=== PATIENT | male | born 1975 | race Caucasian/White ===

== ENCOUNTER 2024-03-02 21:51 | Emergency (ER) | payer BC, SELFPAY ==
--- NOTE | ~2024-03-02 | XR_ITS ---
EXAMINATION: XR chest 2V Exam Date/Time: 03/02/2024 22:08 CDT HISTORY: chest pain Comparison: 06/26/2018. RESULT: Lines, tubes, and devices: None. Lungs and pleura: Clear. Cardiomediastinal silhouette: Stable. Other: No acute osseous or upper abdominal finding. IMPRESSION: No acute cardiopulmonary process. Reviewed, dictated and finalized at location [facility].
--- NOTE | 2024-03-02 21:54 | ECG_ITS ---
Test Date: 2024-03-02 22:05:27 Measurements Intervals [place] Rate: 90 P: 29 MD: 222 QRS: -25 QRSD: 112 T: 31 QT: 353 QTc: 434 Interpretive Statements SINUS RHYTHM WITH FIRST DEGREE AV BLOCK MINOR NONSPECIFIC T-WAVE ABNORMALITY ABNORMAL ECG No previous ECG available for comparison Electronically Signed On 03-03-2024 07:25:10 CDT by Lorenzo Julian M.D.
[2024-03-02 22:18] VITALS: BP 148/104; PULSE 90; RESP 15; TEMP 36.8; O2SAT 100
[2024-03-02 22:53] LABS: Basophils Percent Auto 0.4 % (0.2-1.2); Eosinophils Absolute Auto 0.3 K/mm3 (0-0.3); Hematocrit 40.2 % (42.0-52.0); Hemoglobin 14.2 g/dL (14.0-18.0); Immature Granulocyte Absolute 0.02 K/mm3 (0.00-0.031); Immature Granulocyte Percent A 0.4 % (0-0.5); Lymphocytes Percent Auto 39.6 % (18.3-44.2); Mean Corpuscular HGB Conc 35.3 g/dl (32-36); Mean Corpuscular Hemoglobin 30.1 pg (26-34); Mean Corpuscular Volume 85.4 fl (80-100); Monocytes Absolute Auto 0.3 K/mm3 (0.1-0.6); Neutrophils Absolute Auto 2.8 K/mm3 (1.3-6.7); Neutrophils Percent Auto 49.6 % (45.5-73.1); Platelet Count Result 135 k/mm3 (150-375); Red Blood Count 4.71 M/mm3 (4.6-6.20); Red Cell Distribution Width 12.9 % (11.5-14.5); White Blood Count 5.6 K/mm3 (4.5-10.0)
[2024-03-02 23:03] LABS: Alanine Aminotransferase 26 U/L (6-50); Albumin Level 4.4 g/dL (3.5-5.1); Alkaline Phosphatase 58 U/L (38-126); Anion Gap 12 mmol/L (4-12); Aspartate Amino Transferase 29 U/L (17-59); Bilirubin,Total 0.8 mg/dL (0.2-1.3); Blood Urea Nitrogen 22 mg/dL (9-20); Calcium 9.5 mg/dL (8.4-10.2); Carbon Dioxide 23 mmol/L (22-30); Chloride 102 mmol/L (98-107); Estimated CRCL calculation 65 ml/min; Estimated Glomerular Filt Rate 46; Glucose 220 mg/dL (65-110); Lipase 355 U/L (23-300); Potassium 3.9 mmol/L (3.4-5.0); Sodium 137 mmol/L (137-145)
[2024-03-02 23:05] LABS: Partial Thromboplastin Time 26.9 Seconds (22.3-36.8); Prothrombin Time 13.7 Seconds (11.1-14.7)
[2024-03-02 23:14] LABS: Troponin I < 0.012 ng/mL (0.000-0.034)
[2024-03-02 23:56] VITALS: BP 150/100; PULSE 82; PULSE 86; RESP 16; O2SAT 98
[2024-03-02 23:57] VITALS: O2SAT 98
--- NOTE | 2024-03-03 00:44 | ECG_ITS ---
Test Date: 2024-03-03 00:50:54 Measurements Intervals [place] Rate: 77 P: 16 [place]: 239 QRS: -29 QRSD: 106 T: 17 QT: 370 QTc: 420 Interpretive Statements SINUS RHYTHM WITH FIRST DEGREE AV BLOCK BORDERLINE LEFT AXIS DEVIATION [QRS AXIS < -20] MINOR NONSPECIFIC T-WAVE ABNORMALITY ABNORMAL ECG Compared to ECG 03/02/2024 22:05:27 NO DIFFERENCE Electronically Signed On 03-03-2024 07:27:13 CDT by Lorenzo Julian M.D.
[2024-03-03 01:21] LABS: Troponin I < 0.012 ng/mL (0.000-0.034)
--- NOTE | 2024-03-03 01:24 | ED.GENADULT ---
HPI - General Adult General Chief complaint: Chest Pain Stated complaint: chest pain for 5 days Time Seen by Provider: 03/03/24 00:56 History of Present Illness HPI narrative: patient is a 48-year-old gentleman presents emergency deprtment with chief complaint chest pain. Patient reports that he has renal transplant patient and also has diabetes and takes Trulicity the patient reports that for the last 5 days he has had a sharp type pain in the left side of his chest that is worse with inspiration and reports that it has improved whenever he pushes on his ribs the patient reports no shortness of breath denies leg swelling patient denies fever patient reports no prior history of cardiac disease Related Data Home Medications Medication Instructions Recorded Confirmed allopurinol 300 mg tablet 300 mg PO DAILY 12/27/23 12/28/23 clonidine HCl 0.2 mg tablet 0.2 mg PO BID 12/27/23 12/28/23 dulaglutide 1.5 mg/0.5 mL 1.5 mg subcut WEEKLY 12/27/23 12/28/23 subcutaneous pen injector (Trulicity) metoprolol succinate 100 mg 100 mg PO DAILY 12/27/23 12/28/23 tablet,extended release 24 hr prednisone 5 mg tablet 5 mg PO DAILY 12/27/23 12/28/23 tacrolimus 4 mg tablet,extended 4 mg PO DAILY 12/27/23 12/28/23 release 24 hr (Envarsus XR) tadalafil 5 mg tablet (Cialis) 5 mg PO DAILY 12/27/23 12/28/23 Allergies Allergy/AdvReac Type Severity Reaction Status Date / Time NSAIDS (Non-Steroidal Allergy Mild Rash Verified 12/28/23 07:35 Anti-Inflamma morphine AdvReac Mild Other Verified 12/28/23 07:35 Review of Systems Review of Systems: A 10 system review of systems was completed on the patient and is negative except for what is stated in the HPI. Nursing and ancillary documentation was reviewed. [facility] Past Medical History Medical History Broken arm 1979 Calcaneal fracture 2006 Hypertension Kidney disease Type 2 diabetes mellitus Surgical History Surgical History H/O hernia repair 1987, 2011, 2012 Kidney transplant recipient 2006 Family History Family History Father Alcoholism Malignant neoplasm of prostate Hypertension Mother Breast cancer Diabetes mellitus Grandparent Alcoholism Heart disease Social History Social History Years smoked: 11 Smoking status: Former smoker Tobacco type: cigarettes Smoking end date: 02/20/01 Alcohol intake: never Substance use: former Substance use type: marijuana Do You Feel Safe in your Home?: Yes Lack of Transportation: No Occupation/Education: occupation Additional occupation/education comments: Licensed counselor Exam Narrative: GENERAL: Well-appearing, well-nourished, and in no acute distress. HEAD: Normocephalic, atraumatic. EYES: PERRLA and EOMI. ENT: Nares clear, no rhinorrhea or epistaxis. Mucous membranes moist. NECK: Supple. CHEST: Clear to auscultation. No respiratory distress. HEART: Regular rate and rhythm. No murmur heard. Normal peripheral pulses. ABDOMEN: Soft, nontender, nondistended, normal active bowel sounds. EXTREMITIES: Normal range of motion. No edema. SKIN: Warm, dry, no rash. NEURO: No focal deficits. Alert and oriented x3. PSYCH: Normal mood and affect. Course Vital Signs Vital signs: Vital Signs Temperature 36.8 C 03/02/24 22:18 Pulse Rate 90 03/02/24 22:18 Respiratory Rate 15 03/02/24 22:18 Blood Pressure 148/104 H 03/02/24 22:18 Pulse Oximetry 100 03/02/24 22:18 Oxygen Delivery Room Air 03/02/24 22:18 Temperature 36.8 C 03/02/24 22:18 Pulse Rate 86 03/02/24 23:56 Respiratory Rate 16 03/02/24 23:56 Blood Pressure 150/100 H 03/02/24 23:56 Pulse Oximetry 98 03/02/24 23:57 Oxygen Delivery Room Air
[2024-03-03 01:48] VITALS: BP 154/101; PULSE 67; RESP 18; O2SAT 99
== END 2024-03-03 01:48 | disposition home or self-care (01) ==
PROVIDERS: Emergency Provider Emergency Medicine; PCP Family Medicine
DX: R07.89 Other chest pain (principal); N28.9 Disorder of kidney and ureter, unspecified; E11.9 Type 2 diabetes mellitus without complications; I10 Essential (primary) hypertension; Z87.891 Personal history of nicotine dependence
CPT/HCPCS: 36415; 71046; 80053; 83690; 84484; 85025; 85610; 85730; 93005; 99284